=== PATIENT | female | born 1985 | race Two or more races ===

== ENCOUNTER 2018-10-26 10:05 | Emergency (ER) | payer OTHER ==
[~2018-10-26] VITALS: Ht 160 cm; Wt 77.1 kg
[2018-10-26 10:33] VITALS: BP 116/68
--- NOTE | 2018-10-26 11:16 | PHYS DOC ---
Past Medical History Past Medical History: No Pertinent History Past Surgical History: Cholecystectomy, Alcohol Use: None Drug Use: None Adult General Chief Complaint Chief Complaint: NEEDLE STICK HPI HPI Patient is a 33 year old female who presents to the emergency room with and need for rapid HIV test. 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 Patient states that the incident happened at approximately 7:30 in the morning yesterday. She thoroughly washed the area with soap and water after the needle stick. She denies any pain, numbness, tingling, redness, or swelling of the affected area. Review of Systems Review of Systems Constitutional: Denies fever Integument: See history of present illness Neurologic: Denies focal weakness or sensory changes [] Allergies Allergies Allergies Coded Allergies Type Severity Reaction Last Updated Verified No Known Drug Allergies 10/26/18 No Physical Exam Physical Exam Constitutional: Well developed, well nourished, no acute distress, non-toxic appearance. [] HENT: Normocephalic, atraumatic, bilateral external ears normal, nose normal. [ ] Eyes: conjunctiva normal, no discharge. [] Lungs & Thorax: Respirations even and unlabored no distress noted, Skin: L thumb: Warm, dry, no erythema, no rash. [] Extremities: L thumb: No tenderness, no cyanosis, ROM intact, no edema. [] Neurologic: Alert and oriented X 3, no focal deficits noted. [] Psychologic: Affect normal, judgement normal, mood normal. [] Current Patient Data Vital Signs Vital Signs Date Time Temp Pulse Resp B/P (MAP) Pulse Ox O2 Delivery O2 Flow Rate FiO2 10/26/18 10:33 99.1 90 16 116/68 (84) 98 Room Air 99.1 Lab Values Laboratory Tests Test 10/26/18 11:08 10/26/18 12:45 Special Test - Miscellaneous See separate report Hepatitis B Surface Antibody Reactive Hepatitis C IgG Antibody Nonreactive (Nonreactive) HIV (1&2) Antibody Screen Nonreactive (Nonreactive) EKG EKG [] Radiology/Procedures Radiology/Procedures [] Course & Med Decision Making Course & Med Decision Making Pertinent Labs and Imaging studies reviewed. (See chart for details) Dx: accidental needle stick Advised pt that test results would not be available today and to follow up with work comp for results of testing. [] Dragon Disclaimer Dragon Disclaimer This electronic medical record was generated, in whole or in part, using a voice recognition dictation system. Departure Departure Impression: Primary Impression: Needle stick injury of finger of left hand Disposition: HOME, SELF-CARE Condition: STABLE Referrals: NO PCP (PCP) Patient Instructions: Needle Stick Injury, [id number] Additional Instructions: Follow up with your workman's comp doctor for results of testing that was performed today. Return to the ER as needed. Problem Qualifiers Primary Impression: Needle stick injury of finger of left hand Encounter type: initial encounter Qualified Codes: S61.239A - Puncture wound without foreign body of unspecified finger without damage to nail, initial encounter; W27.3XXA - Contact with needle (sewing), initial encounter JOSAFAT STRICKLAND APRN Oct 26, 2018 11:16
== END 2018-10-26 13:08 | disposition home or self-care (01) ==
LOC: ER 10:05
DX: S61.032A Puncture wound without foreign body of left thumb without damage to nail, initial encounter (principal); Z98.890 Other specified postprocedural states; Z90.49 Acquired absence of other specified parts of digestive tract; W27.3XXA Contact with needle (sewing), initial encounter; Y93.89 Activity, other specified; Y92.89 Other specified places as the place of occurrence of the external cause; Y99.8 Other external cause status
CPT/HCPCS: 36415; 86701; 86703; 86706; 86803; 99283